=== PATIENT | female | born 1985 | race Two or more races ===

== ENCOUNTER 2017-03-11 09:22 | Emergency (ER) | payer SELFPAY ==
[2017-03-11 09:33] VITALS: BP 120/85; PULSE 65; TEMP 97.9; BMI 32.9
--- NOTE | 2017-03-11 10:26 | PDOC ---
History of Present Illness - General Chief Complaint: Cold Symptoms Stated Complaint: SORE THROAT Time Seen by Provider: 03/11/17 09:57 History Source: Patient Exam Limitations: No Limitations - History of Present Illness Initial Comments: 03/11/17 10:21 Is here with complaints of sore throat pain 2 days. States has had a runny nose , some head congestion, and worse for throat pain in the morning. States he has excessive postnasal drainage. Has taken no medications for relief. Denies fever , denies any earache or cough. 03/11/17 10:27 Timing/Duration: reports: changing over time Severity: reports: mild Associated Symptoms: reports: fever/chills, headache, nasal congestion, nasal drainage. denies: cough Past History - Travel Traveled outside of the country in the last 30 days: No Close contact w/someone who was outside of country & ill: No - Past Medical History Allergies/Adverse Reactions: Allergies Allergy/AdvReac Type Severity Reaction Status Date / Time No Known Allergies Allergy Verified 03/11/17 09:30 Home Medications: Ambulatory Orders NK [No Known Home Medication] 03/11/17 Anemia: Yes Asthma: No Cancer: No Cardiac Disorders: No CVA: No COPD: No CHF: No Dementia: No Diabetes: No GI Disorders: No Disorders: No HTN: No Hypercholesterolemia: No Liver Disease: No Seizures: No Thyroid Disease: No - Psycho/Social/Smoking Cessation Hx Anxiety: No Suicidal Ideation: No Smoking History: Unknown if ever smoked Have you smoked in the past 12 months: No Information on smoking cessation initiated: No Hx Alcohol Use: No Drug/Substance Use Hx: No Substance Use Type: None Hx Substance Use Treatment: No Review of Systems - Review of Systems Able to Perform ROS?: Yes Is the patient limited Kinyarwanda proficient: Yes Constitutional: Yes: Symptoms Reported, See HPI, Malaise. No: Fever HEENTM: Yes: Symptoms Reported, See HPI, Nose Congestion. No: Difficulty Swallowing Respiratory: Yes: Symptoms reported, See HPI. No: Cough Musculoskeletal: No: Symptoms Reported All Other Systems: Reviewed and Negative *Physical Exam - Vital Signs Last Vital Signs Temp Pulse Resp BP Pulse Ox 97.9 F 65 18 120/85 100 03/11/17 09:31 03/11/17 09:31 03/11/17 09:31 03/11/17 09:31 03/11/17 09:31 - Physical Exam General Appearance: Yes: Nourished, Appropriately Dressed, Apparent Distress HEENT: positive: SHAYE (temp landmarks easily visualized), TMs Normal, Pharynx Normal (no redness, swelling or exudate. However thick postnasal drainage noted in posterior pharynx), Nasal Congestion, Rhinorrhea. negative: Normal ENT Inspection, Sinus Tenderness Neck: positive: Supple. negative: Lymphadenopathy (R), Lymphadenopathy (L) Respiratory/Chest: positive: Lungs Clear, Normal Breath Sounds (no wheezing or retractions). negative: Chest Tender, Respiratory Distress, Wheezing Cardiovascular: positive: Regular Rhythm Extremity: positive: Normal Capillary Refill, Normal Inspection Integumentary: positive: Normal Color, Dry, Warm, Pale Neurologic: positive: rotary machine operator II-XII NML intact, Fully Oriented, Alert, Normal Mood/ Affect, Normal Response, Motor Strength 5/5 Progress Note - Progress Note Progress Note: ALLERGIC rhinitis, we'll treat with antihistamines with decongestant, encourage patient to use conservative measures, and follow up with PMD *DC/Admit/Observation/Transfer Diagnosis at time of Disposition: Allergic rhinitis Qualifiers: Chronicity: acute Allergic rhinitis trigger: unspecified Allergic rhinitis seasonality: non-seasonal Qualified Code(s): J30.89 - Other allergic rhinitis - Discharge Dispostion Disposition: HOME Condition at time of disposition: Stable Admit: No - Referrals Referrals: Sandhya Lock INSTRUCTOR [employer] [Primary Care Provider] - - Patient Instructions Printed Discharge Instructions: DI for Allergic Rhinitis Additional Instructions: Rest, drink lots of fluids: Teas, water, soups Saltwater gargles. Consider humidifier in room at night Steamy showers/seem to face break up mucus Avoid contact with allergens, exposure to pollens, close windows on a windy day Lots of handwashing and good hygiene Continue [id number] medications for symptomatic relief- may use allergic eyedrops for itching I Continue antihistamines daily until pollen season is over; Zyrtec, Claritin, Ashley during the daytime and Benadryl at nighttime as will make sleepy LOOK FOR CLARITIN D.. andf take 1 tab in am. Tylenol or Motrin for fever and pain Followup with private physician in one to 2 days as needed Consider following up with an blood bank assistant/wood die maker for skin testing and possible allergy shots Return to emergency department for worsened symptoms, fevers, dehydration - Post Discharge Activity Work/School Note: Back to Work
== END 2017-03-11 10:31 | disposition home or self-care (01) ==
LOC: JERFT 09:22
DX: J30.89 Other allergic rhinitis (principal)
CPT/HCPCS: 99281-25

== ENCOUNTER 2017-08-01 12:10 | Emergency (ER) | payer OTHER ==
[2017-08-01 12:29] VITALS: BP 120/78; PULSE 64; TEMP 97.8; BMI 31.1
[2017-08-01] MEDS ORDERED: ACETAMINOPHEN 325 MG TABLET (FP) PO ONE (13:37)
--- NOTE | 2017-08-01 13:41 | PDOC ---
History of Present Illness - General Chief Complaint: Eye Problem Stated Complaint: EYE INJURY Time Seen by Provider: 08/01/17 13:20 History Source: Patient Exam Limitations: No Limitations Past History - Past Medical History Allergies/Adverse Reactions: Allergies Allergy/AdvReac Type Severity Reaction Status Date / Time No Known Allergies Allergy Verified 08/01/17 12:18 Home Medications: Ambulatory Orders Tobramycin 0.3% Ophth Soln [Tobrex Ophthalmic Solution -] 1 drop OD Q4HWA #1 bottle 08/01/17 Anemia: Yes Asthma: No Cancer: No Cardiac Disorders: No CVA: No COPD: No CHF: No Dementia: No Diabetes: No GI Disorders: No Disorders: No HTN: No Hypercholesterolemia: No Liver Disease: No Seizures: No Thyroid Disease: No - Suicide/Smoking/Psychosocial Hx Smoking History: Never smoked Have you smoked in the past 12 months: No Hx Alcohol Use: No Drug/Substance Use Hx: No Substance Use Type: None Hx Substance Use Treatment: No *Physical Exam - Vital Signs Last Vital Signs Temp Pulse Resp BP Pulse Ox 97.8 F 64 20 120/78 100 08/01/17 12:19 08/01/17 12:19 08/01/17 12:19 08/01/17 12:19 08/01/17 12:19 - Physical Exam General Appearance: Yes: Nourished, Appropriately Dressed HEENT: positive: EOMI, SHAYE, Normal ENT Inspection, TMs Normal, Pharynx Normal, Other (right eye conjunctival erythema with scant yellow discharge ) Musculoskeletal: positive: Normal Inspection Extremity: positive: Normal Capillary Refill, Normal Inspection, Normal Range of Motion Integumentary: positive: Normal Color, Dry, Warm Neurologic: positive: Fully Oriented, Alert, Normal Mood/Affect, Normal Response , Motor Strength 5/5 Procedures - Eye Procedure Alcaine Drops Administered: Yes Progress: 08/01/17 13:41 neg fluroscein uptake neg fb seen Medical Decision Making - Medical Decision Making 08/01/17 13:41 cc: right eye redness with discharge no vision changes neg fluroscein uptake *DC/Admit/Observation/Transfer Diagnosis at time of Disposition: Conjunctivitis - Discharge Dispostion Disposition: HOME Condition at time of disposition: Good - Prescriptions Prescriptions: Tobramycin 0.3% Ophth Soln [Tobrex Ophthalmic Solution -] 1 drop OD Q4HWA #1 bottle - Referrals Referrals: Jono Membreno MD [Staff Physician] - - Patient Instructions Printed Discharge Instructions: DI for Conjunctivitis Additional Instructions: use the drops as prescribed for 5 days wash hands often follow with the eye doctor next week if any worsening symptoms
[2017-08-01] MEDS ORDERED: ACETAMINOPHEN 325 MG TABLET (FP) ONE (13:45)
== END 2017-08-01 13:50 | disposition home or self-care (01) ==
LOC: JERFT 12:10
DX: H10.31 Unspecified acute conjunctivitis, right eye (principal)
CPT/HCPCS: 99281-25

== ENCOUNTER 2018-10-17 04:57 | Day surgery (SDC) | payer OTHER ==
[2018-10-14 16:51] VITALS: BMI 40.2
[2018-10-17] MEDS ORDERED: LIDOCAINE HCL 1%, 10 MG/ML (20ML VIAL) ONE (08:00)
[2018-10-17] MEDS ORDERED: BUPIVACAINE HCL/PF 0.5% (5MG/ML) 10 ML VIAL ONE (08:00)
[2018-10-17] MEDS ORDERED: MIDAZOLAM HCL 2 MG/2 ML SINGLE DOSE VIAL ONE (08:58)
[2018-10-17] MEDS ORDERED: ROCURONIUM BROMIDE 50 MG/5 ML VIAL ONE ×2 (08:58→10:26)
[2018-10-17] MEDS ORDERED: PROPOFOL 20 ML ONE (08:58)
[2018-10-17] MEDS ORDERED: LIDOCAINE HCL/PF 2% SDV 5ML VIAL ONE (08:59)
[2018-10-17] MEDS ORDERED: ONDANSETRON 4 MG/2 ML VIAL IVPUSH PRN (09:08)
[2018-10-17] MEDS ORDERED: oxyCODONE HCL 5 MG TABLET PO PRN (09:08)
[2018-10-17] MEDS ORDERED: PROMETHAZINE HCL 25 MG/1 ML VIAL IVPB PRN (09:08)
--- NOTE | 2018-10-17 09:14 | HP ---
History & Physical Update - History History: No Change - Physical Physical: No Change - Assessment Assessment: No Change - Plan Plan: No Change (Symptomatic gallstones, plan: laparoscopic cholecystectomy possible open. Consent obtained.)
[2018-10-17] MEDS ORDERED: LACTATED RINGERS SOLUTION 1,000 ML IV SCH (09:15)
[2018-10-17] MEDS ORDERED: SODIUM CHLORIDE 0.9% P/F 10 ML VIAL IJ ONE (09:18)
[2018-10-17] MEDS ORDERED: ceFAZolin SODIUM 1 GM VIAL ONE (09:18)
[2018-10-17] MEDS ORDERED: ONDANSETRON 4 MG/2 ML VIAL ONE (09:37)
[2018-10-17] MEDS ORDERED: DEXAMETHASONE SOD PHOSPHATE 4 MG/1 ML VIAL ONE (09:37)
[2018-10-17] MEDS ORDERED: ceFAZolin SODIUM 1 GM VIAL IVPB ONE ×2 (09:38)
[2018-10-17] MEDS ORDERED: BUPIVACAINE HCL/PF 0.5% (5MG/ML) 10 ML VIAL IJ ONE ×2 (10:22→11:11)
[2018-10-17] MEDS ORDERED: GLYCOPYRROLATE 0.2 MG/1 ML VIAL ONE (10:25)
[2018-10-17] MEDS ORDERED: NEOSTIGMINE METHYLSULFATE 0.5 MG/1 ML - 10 ML MDV ONE (10:25)
[2018-10-17] MEDS ORDERED: METOPROLOL TARTRATE 5 MG/5 ML VIAL ONE (11:22)
--- NOTE | 2018-10-17 11:29 | OP ---
Operative Note - Note: Operative Date: 10/17/18 Pre-Operative Diagnosis: Calculus of gallbladder with chronic cholecystitis. Obesity. Operation: Laparoscopic cholecystectomy,. laparoscopic lysis of omental adhesions. Findings: Two large calculii within the distended gallbladder. Omental adhesions around the gallbladder. Post-Operative Diagnosis: Other (Calculus of gallbladder with omental adhesions. ) Surgeon: Francisco Christensen Density Control Puncher: Triny Meneses Anesthesiologist/INDUSTRIAL RECRUITER: Jose Rea Anesthesia: General Specimens Removed: Gallbladder with calculii. Estimated Blood Loss (mls): 10 Operative Report Dictated: Yes
--- NOTE | 2018-10-17 12:39 | OP ---
DATE OF OPERATION: 10/17/2018 PREOPERATIVE DIAGNOSIS: Chronic cholecystitis with cholelithiasis and obesity. POSTOPERATIVE DIAGNOSIS: Calculus of the gallbladder with chronic cholecystitis, omental adhesions, and obesity. OPERATIVE PROCEDURE: Laparoscopic cholecystectomy with laparoscopic lysis of omental adhesions. SURGEON: Justine Christensen MD TIME STAMP ASSEMBLER: GREGORY Arriaga ANESTHESIA: General anesthesia. ANESTHESIOLOGIST: Jose Rea MD OPERATIVE DESCRIPTION: This 33-year-old woman has chronic pain in the right upper quadrant radiating to the back. She was found to have calculus of the gallbladder with a large stone in it. Patient was brought in for laparoscopic cholecystectomy. Consent was obtained. Risks, benefits, and complications had been discussed with the patient. The patient was given general anesthesia. The abdomen was painted and draped. Patient was given antibiotics prior to the procedure. She is obese. The abdomen was painted and draped. Time-out was called. Incision was made in the infraumbilical portion of the umbilicus, which was deepened through the skin and subcutaneous tissue and the linea alba. The peritoneum was incised, and the 10-12-cm laparoscopic trocar was inserted through the abdominal cavity. The abdomen was inflated with carbon dioxide at 6 L per minute with a maximum intraabdominal pressure of 15 mmHg. A 5-mm and 10-mm in diameter camera was inserted into the abdominal cavity as needed. Under direct vision, two 5-mm trocars were inserted in the right upper quadrant of the abdomen, one in the midclavicular line, the other around the anterior axillary line. These were noted entering the abdominal cavity under direct vision with a camera. Third trocar was inserted in the midline in the subxiphoid area. After making a small skin incision, this was introduced into the abdominal cavity to the right of the falciform ligament. The gallbladder was visualized and grasped at the fundus and retracted cephalad and laterally with the grasper through the lateral 5-mm port. There were omental adhesions wrapped around the gallbladder all the way to the middle of the gallbladder. The gallbladder was very long and distended and extended down over the edge of the stomach. After the omental adhesions were performed with sharp and blunt dissection, the infundibulum of the gallbladder was visualized and grasped with another grasper through the medial 5-mm port site. This was retracted inferiorly and laterally, thus exposing the cystic duct and cystic artery and the contents of the Calots triangle. With sharp and blunt dissection, the cystic duct was isolated circumferentially. This was then divided with end-clips. The cystic artery was also visualized and divided with end-clips. The peritoneal reflection on either side of the gallbladder was then incised. The gallbladder was dissected out of the gallbladder bed with sharp and blunt dissection using electrocautery with the EndoShears as well as with the hook. Hemostasis was achieved as the dissection proceeded. Cholecystectomy was thus accomplished. An EndoCatch was then introduced through the umbilical port, the camera being switched to the subxiphoid port. The gallbladder was placed in EndoCatch and retrieved out of the abdominal cavity. The gallbladder fossa was dry throughout the procedure. All bleeding vessels and visualized vessels were clipped or cauterized. Gallbladder was then retracted and extracted out of the abdominal cavity with EndoCatch introduced through the umbilical port, the camera being switched to the subxiphoid port and two large stones within the gallbladder. Specimen was inspected consistent with the gallbladder and the area of the cystic duct. This was sent to Pathology. Gallbladder fossa was then thoroughly irrigated with 3 L of normal saline. Hemostasis was satisfactory. Gallbladder fossa was dry. All fluid was evacuated. The instruments were then withdrawn under direct vision. The linea alba at the midline was approximated with interrupted [id number] 2-0 Vicryl sutures. Marcaine 0.5% was injected into the wound. Skin was approximated with buried interrupted 4-0 Monocryl sutures. Sponge count and instrument count were correct. Estimated blood loss was about 10 mL. Patient tolerated the procedure well, was extubated, and sent to the recovery room in satisfactory and stable condition. Paxton [id number]
[2018-10-17 14:39] VITALS: BP 132/88; PULSE 67; TEMP 98.3
[2018-10-17] MEDS ORDERED: oxyCODONE HCL 5 MG TABLET ONE (14:44)
[2018-10-17] MEDS ORDERED: oxyCODONE HCL 5 MG TABLET PO ONE (14:45)
--- NOTE | 2018-10-17 15:30 | SURG ---
Surgery Operations Superintendent Note Operations Superintendent: Triny Meneses PA-C Date of Service: 10/17/18 Diagnosis: Calculus of gallbladder with chronic cholecystitis. Obesity. Procedure: Laparoscopic cholecystectomy,. laparoscopic lysis of omental adhesions. I was present for the entirety of the operative procedure. For further detail, please refer to operative report. Visit type - Case Type Case Type: Scheduled - Emergency Emergency Visit: No - New patient This patient is new to me today: Yes Date on this admission: 10/17/18
--- NOTE | 2018-10-20 18:28 | PATH ---
Surgical Pathology Report Patient Name: RICHARD NORTON [facility]. Rec. #: [id number] /Age/Gender: 1985 (Age: 33) / F Account: [id number] Location: [facility] Taken: 10/17/2018 Received: 10/17/2018 Reported: 10/20/2018 Physicians: Justine Christensen M.D. Specimen(s) Received GALLBLADDER Clinical History Cholecystitis, cholelithiasis Final Diagnosis GALLBLADDER, LAPAROSCOPIC CHOLECYSTECTOMY: CHRONIC CHOLECYSTITIS WITH CHOLELITHIASIS AND CHOLESTEROLOSIS. Electronically Signed Corrina London M.D. Gross Description Received in formalin, labeled "gallbladder," is a 8.0 x 2.5 x 2.5 cm. gallbladder with a 0.2 cm. in length portion of cystic duct attached. The outer surface is de paz-pink and varies from smooth to shaggy. The lumen contains red blood as well as 2 brown, irregular choleliths averaging 2.0 cm in greatest dimension. The mucosa is red-brown and focally eroded. The wall of the gallbladder averages 0.2 cm. in thickness. Motorcoach Driver sections are submitted in one cassette. /10/17/201810/17/2018
== END 2018-10-17 15:50 | disposition home or self-care (01) ==
LOC: JASU-SURG 04:57
PROVIDERS: ATTEND Specialist
PROC: 0FT44ZZ Resection of Gallbladder, Percutaneous Endoscopic Approach (ICD-10-PCS; principal; 2018-10-17 09:30)
DX: K80.10 Calculus of gallbladder with chronic cholecystitis without obstruction (principal); K66.0 Peritoneal adhesions (postprocedural) (postinfection); E66.01 Morbid (severe) obesity due to excess calories
CPT/HCPCS: 84703; 88304-TC; 94760

== ENCOUNTER 2021-11-12 14:49 | Emergency (ER) | payer OTHER ==
[2021-11-12 14:56] VITALS: BP 104/71; PULSE 79; TEMP 97; BMI 33.8
== END 2021-11-12 15:55 | disposition home or self-care (01) ==
LOC: JERFT 14:49
DX: H10.31 Unspecified acute conjunctivitis, right eye (principal)
CPT/HCPCS: 99283-25

== ENCOUNTER 2022-04-26 13:39 | Emergency (ER) | payer OTHER ==
[2022-04-26 13:45] VITALS: BMI 32.9
[2022-04-26] MEDS ORDERED: SODIUM CHLORIDE 0.9% 500 ML INFUS.BAG IV ONE (14:25)
[2022-04-26] MEDS ORDERED: KETOROLAC TROMETHAMINE 15 MG/ML VIAL IVPUSH ONE (14:25)
[2022-04-26] MEDS ORDERED: KETOROLAC TROMETHAMINE 15 MG/ML VIAL ONE (14:55)
[2022-04-26 15:22] LABS: BASO % 0.7 % (0-2.0); EOS % 0.6 % (0-4.5); HEMATOCRIT 41.8 % (32.4-45.2); HEMOGLOBIN 14.2 GM/dL (10.7-15.3); LYMPH % 30.4 % (8-40); MCH 32.7 pg (25.7-33.7); MEAN CELL VOLUME 96.1 fl (80-96); MONO % 6.9 % (3.8-10.2); NEUT % 61.4 % (42.8-82.8); PLATELET COUNT 167 10^3/uL (134-434); RBC 4.35 M/mm3 (3.60-5.2); RDW 12.7 % (11.6-15.6)
[2022-04-26 15:27] LABS: HCG,QUALITATIVE URINE Negative
[2022-04-26 15:28] LABS: EPI CELLS 14 /uL (0-25.1); HYALINE CASTS 2 /uL (0-3.1); URINE APPEARANCE CLOUDY; URINE BACTERIA >9,000 /uL (0-1359); URINE BILIRUBIN NEGATIVE (NEGATIVE); URINE COLOR YELLOW; URINE GLUCOSE (UA) 3+ (NEGATIVE); URINE KETONE 1+ (NEGATIVE); URINE LEUK ESTERASE TRACE (NEGATIVE); URINE NITRITE POSITIVE (NEGATIVE); URINE PROTEIN 1+ (NEGATIVE); URINE RBC 153 /uL (0-23.9); URINE UROBILINOGEN 0.2 mg/dL (0.2-1.0); URINE WBC 898 /uL (0-25.8)
[2022-04-26 15:52] LABS: ALBUMIN 3.8 g/dl (3.4-5.0); BILIRUBIN,TOTAL 0.6 mg/dL (0.2-1); BLOOD UREA NITROGEN 8.9 mg/dL (7-18); CREATININE 0.8 mg/dL (0.55-1.3); TOT PROT 7.4 g/dl (6.4-8.2)
[2022-04-26 16:02] VITALS: TEMP 97.6
[2022-04-26] MEDS ORDERED: CEFTRIAXONE 1,000 MG in DEXTROSE 5%-WATER - 50 ML IVPB ONE (16:45)
[2022-04-26] MEDS ORDERED: CEFTRIAXONE 1 GM/50 ML BAG ONE (16:54)
[2022-04-26 17:31] VITALS: BP 121/83; PULSE 60
== END 2022-04-26 17:30 | disposition home or self-care (01) ==
LOC: JER 13:39
PROC: 3E03329 Introduction of Other Anti-infective into Peripheral Vein, Percutaneous Approach (ICD-10-PCS; principal; 2022-04-26)
PROC: 3E0333Z Introduction of Anti-inflammatory into Peripheral Vein, Percutaneous Approach (ICD-10-PCS; 2022-04-26)
DX: N12 Tubulo-interstitial nephritis, not specified as acute or chronic (principal)
CPT/HCPCS: 36415; 80053; 81003; 82962; 84703; 85025; 87086; 87186; 99284-25

== ENCOUNTER 2023-08-02 08:55 | Emergency (ER) | payer OTHER ==
[2023-08-02 09:33] VITALS: BP 106/70; PULSE 89; RESP 18; TEMP 98.3; BMI 36.6
[2023-08-02] MEDS ORDERED: guaiFENesin/D-METHORPHAN HB 10 ML UNIT-DOSE CUPS PO ONE (10:24)
[2023-08-02] MEDS ORDERED: predniSONE 20 MG TABLET (UD) PO ONE (10:24)
[2023-08-02] MEDS ORDERED: predniSONE 20 MG TABLET (UD) ONE (10:28)
[2023-08-02] MEDS ORDERED: guaiFENesin/D-METHORPHAN HB 10 ML UNIT-DOSE CUPS ONE (10:28)
== END 2023-08-02 11:53 | disposition home or self-care (01) ==
LOC: JER 08:55 → JERFT 08:55
DX: R05.9 Cough, unspecified (principal); R12 Heartburn; R06.02 Shortness of breath; J40 Bronchitis, not specified as acute or chronic
CPT/HCPCS: 71046-TC-FY; 99283-25

== ENCOUNTER → 2024-03-25 | Day surgery (SDC) | payer OTHER | END | disposition home or self-care (01) | LOC: JRADUS-SUR 11:56 | PROC: 0H9T3ZX Drainage of Right Breast, Percutaneous Approach, Diagnostic (ICD-10-PCS; principal; 2024-03-25) | DX: N60.11 Diffuse cystic mastopathy of right breast (principal) | CPT/HCPCS: 19083; 19084; 77065-TC; 87899; 88305-TC; A4648 ==